=== PATIENT | female | born 1955 | race Two or more races ===

== ENCOUNTER → 2016-08-26 | Day surgery (SDC) | payer OTHER ==
[~2016-08-26] MED LIST: ISONIAZID100 MG PO; MACRODANTIN PO; PERCOCET 5-3251 TAB PO; PYRAZINAMIDE; PYRIDIUM100 MG PO; PYRIDOXINE HCL50 MG PO; RIFAMPIN300 M1 PO; SIMVASTATIN10 MG PO; ZOFRAN PO
--- NOTE | ~2016-08-26 | OR ---
Unit #: [id number] #: [id number] Patient: MAYRA HORAN [id number] [address] [address] [id number] O MR#: [id number] NAME: MAYRA HORAN ROOM: Date of Procedure: 08/26/2016 Admission Date: 08/26/2016 Surgeon: Andreas Hernandes M.D. : 1955 Attending Physician: Andreas Hernandes M.D. Primary Care Physician: No Primary Care Physician PROCEDURE OPERATIVE NOTE PROCEDURES 1. Colonoscopy. 2. Esophagogastroduodenoscopy with biopsy. PREOPERATIVE DIAGNOSES 1. Chronic epigastric pain. 2. Gastroesophageal reflux disease. 3. Screening colonoscopy. POSTOPERATIVE DIAGNOSES 1. Diverticular disease. 2. Internal hemorrhoids. 3. Poor colon prep. 4. Distal esophageal ulcers. 5. Distal esophageal stricture. 6. Hiatal hernia. ANESTHESIA Monitored anesthesia care. ENDOSCOPIST Andreas Hernandes M.D. DESCRIPTION OF PROCEDURE: COLONOSCOPY After adequate explanation of the risks, benefits and alternatives of the procedure, an informed consent was obtained from the patient. The patient was brought to the Endoscopy Suite. Intravenous sedation was administered. The patient was placed in the left lateral position. The colonoscope was introduced into the rectum and advanced to the cecum without difficulty. Once in the cecum, the anatomic landmarks were identified very well. The ileocecal valve was examined. The appendiceal orifice was examined. The scope was slowly withdrawn with the findings as noted in the next section. Adequate mucosal visualization of the colonic mucosa was done upon slow withdrawal. The scope was slowly withdrawn into the rectum and a retroflexed view was also obtained. The scope was withdrawn. The patient tolerated the procedure very well. FINDINGS CECUM: Normal. ILEOCECAL VALVE: Normal. Unit #: [id number] #: [id number] Patient: MAYRA HORAN APPENDICEAL ORIFICE: Normal. ASCENDING COLON: Retained stool. Scattered diverticula. TRANSVERSE COLON: Retained stool. DESCENDING COLON: Retained stool. Scattered diverticula. SIGMOID COLON: Retained stool. Scattered diverticula. RECTUM: Nonbleeding internal hemorrhoids. SCOPE WITHDRAW TIME: Over six minutes. DESCRIPTION OF PROCEDURE: Esophagogastroduodenoscopy After adequate explanation of the risks, benefits and alternatives of the procedure, an informed consent by the patient was obtained. The patient was brought to the Endoscopy Suite. Intravenous sedation was administered. With the patient lying in the left lateral position and after placing the mouthpiece in the mouth, after adequate visualization of the vocal cords, a laryngoscopy was also done and the scope was passed via cricopharyngeus into the esophagus. After this, the esophageal mucosa was examined with an examination of the proximal, middle, and distal esophagus. The scope was then advanced into the stomach where a retroflexed view was obtained to examine the fundus and the angularis incisura. The lesser and greater curvature were examined. After adequate air insufflation, the antrum was then examined. The scope was then advanced to the pylorus and the scope was passed via pylorus up to the descending duodenum. The duodenal bulge and descending duodenum were examined very well. The scope was slowly withdrawn. The patient tolerated the procedure very well. FINDINGS ESOPHAGUS: Proximal esophagus normal. Middle esophagus normal. Distal esophagus evidence of hiatal hernia. Distal esophageal stricture. Evidence of multiple ulcerations at 30 cm. Multiple biopsies obtained, sent for pathology. STOMACH: Fundus normal. ANGULARIS INCISURA: Normal. LESSER CURVATURE: Normal. GREATER CURVATURE: Normal. ANTRUM: Normal. DUODENUM: Bulb normal. Descending duodenum normal. ASSESSMENT AND PLAN 1. The patient is a 61-year-old female presenting with chronic abdominal pain. EGD shows evidence of distal esophageal ulcers and stricture and a hiatal hernia. She will be placed on proton pump inhibitors in addition to lifestyle and diet modifications. 2. Diverticular disease, internal hemorrhoids noted during colonoscopy but no polyps or neoplastic lesion noted. It should be noted the colon prep was suboptimal. Unit #: [id number] #: [id number] Patient: MAYRA HORAN Patient will follow up with the office as needed. Dictated by... Levy Berman/ruth TD: 08/26/2016 17:43 JOB #: [id number] PROCEDURE OPERATIVE NOTE Page 1 of 1 X Andreas Hernandes MD X PROCEDURE OPERATIVE NOTE
== END | disposition home or self-care (01) ==
LOC: COPS 12:49
DX: Z12.11 Encounter for screening for malignant neoplasm of colon (principal); K57.30 Diverticulosis of large intestine without perforation or abscess without bleeding; K21.0 Gastro-esophageal reflux disease with esophagitis; K44.9 Diaphragmatic hernia without obstruction or gangrene; K22.10 Ulcer of esophagus without bleeding; K22.2 Esophageal obstruction; K64.8 Other hemorrhoids
CPT/HCPCS: 43239; G0121; 88305; J2250